=== PATIENT | male | born 1945 | race American Indian/Alaskan Native ===

== ENCOUNTER 2017-02-27 17:03 | Emergency (ER) | payer MEDICARE, OTHER ==
--- NOTE | 2017-02-27 18:06 | Emergency Department Report ---
ED Lower Extremity HPI - General Chief Complaint: Extremity Injury, Lower Stated Complaint: RT KNEE PAIN Time Seen by Provider: 02/27/17 18:03 Source: patient Mode of arrival: Stretcher Limitations: Physical Limitation - History of Present Illness MD Complaint: knee injury -: Sudden Injury: Knee: Right Type of Injury: blunt Place: street/outdoors Severity: mild Severity scale (0 -10): 2 Improves With: nothing Worsens With: nothing Context: fall, direct blow Associated Symptoms: denies: snap/pop sensation, swelling, numbness, tingling - Related Data Home Medications Medication Instructions Recorded Confirmed Last Taken Aspirin [Aspirin BABY CHEW TAB] 81 mg PO QDAY 03/21/15 04/03/15 04/02/15 Atorvastatin [Lipitor] 40 mg PO QHS 03/21/15 04/03/15 04/02/15 Bisacodyl [Dulcolax suppos] 10 mg MN PRN PRN 03/21/15 04/03/15 04/02/15 Calcium Carbonate [Calcium] 250 mg PO DAILY 03/21/15 04/03/15 04/02/15 Citalopram [celeXA] 10 mg PO QDAY 03/21/15 04/03/15 04/02/15 Gabapentin [Neurontin] 100 mg PO Q8H 03/21/15 04/03/15 04/02/15 Galantamine [Razadyne] 16 mg PO BID 03/21/15 04/03/15 04/02/15 Lisinopril [Zestril] 20 mg PO QDAY 03/21/15 04/03/15 04/03/15 05:30 Memantine (Nf) [Namenda] 10 mg PO BID 03/21/15 04/03/15 04/02/15 Metoprolol [Lopressor] 25 mg PO BID 03/21/15 04/03/15 04/03/15 05:30 Multivitamin [Multi Vitamin Daily] 1 each PO DAILY 03/21/15 04/03/15 04/02/15 Nystatin Cream [Mycostatin Cream] 10 applic TP PRN PRN 03/21/15 04/03/15 Omeprazole [PriLOSEC] 20 mg PO QDAY 03/21/15 04/03/15 04/02/15 SUMAtriptan SUCCINATE [Imitrex] 25 mg PO PRN PRN 03/21/15 04/03/15 9 Months Ago Trazodone HCl [traZODone] 50 mg PO PRN PRN 03/21/15 04/03/15 1 Month Ago Allergies Allergy/AdvReac Type Severity Reaction Status Date / Time simvastatin [From Zocor] AdvReac Unknown Verified 03/21/15 15:46 vitamin E (d-alpha AdvReac Unknown Verified 03/21/15 15:46 tocopherol) [vitamin E] ED Review of Systems ROS: Stated complaint: RT KNEE PAIN Other details as noted in HPI Comment: All other systems reviewed and negative ED Past Medical Hx - Past Medical History Previous Medical History?: Yes Hx Hypertension: Yes Hx Heart Attack/AMI: Yes Hx GERD: Yes Hx Liver Disease: Yes (Hep C) Hx Renal Disease: Yes Hx Arthritis: Yes (KNEES) Hx Headaches / Migraines: Yes Hx Seizures: No Hx Dementia: Yes (CONFUSION SHORT TERM MEMORY LOSS) - Surgical History Past Surgical History?: Yes Hx Coronary Stent: Yes (X 3) Hx Open Heart Surgery: Yes (CABG X 3) Hx Pacemaker: No Additional Surgical History: L AKA. PARTIAL R FOOT AMPUTATION. - Social History Smoking Status: Never Smoker Substance Use Type: None - Medications Home Medications: Home Medications Medication Instructions Recorded Confirmed Last Taken Type Aspirin [Aspirin BABY CHEW TAB] 81 mg PO QDAY 03/21/15 04/03/15 04/02/15 History Atorvastatin [Lipitor] 40 mg PO QHS 03/21/15 04/03/15 04/02/15 History Bisacodyl [Dulcolax suppos] 10 mg MN PRN PRN 03/21/15 04/03/15 04/02/15 History Calcium Carbonate [Calcium] 250 mg PO DAILY 03/21/15 04/03/15 04/02/15 History Citalopram [celeXA] 10 mg PO QDAY 03/21/15 04/03/15 04/02/15 History Gabapentin [Neurontin] 100 mg PO Q8H 03/21/15 04/03/15 04/02/15 History Galantamine [Razadyne] 16 mg PO BID 03/21/15 04/03/15 04/02/15 History Lisinopril [Zestril] 20 mg PO QDAY 03/21/15 04/03/15 04/03/15 05:30 History Memantine (Nf) [Namenda] 10 mg PO BID 03/21/15 04/03/15 04/02/15 History Metoprolol [Lopressor] 25 mg PO BID 03/21/15 04/03/15 04/03/15 05:30 History Multivitamin [Multi Vitamin Daily] 1 each PO DAILY 03/21/15 04/03/15 04/02/15 History Nystatin Cream [Mycostatin Cream] 10 applic TP PRN PRN 03/21/15 04/03/15 History Omeprazole [PriLOSEC] 20 mg PO QDAY 03/21/15 04/03/15 04/02/15 History SUMAtriptan SUCCINATE [Imitrex] 25 mg PO PRN PRN 03/21/15 04/03/15 9 Months Ago History Trazodone HCl [traZODone] 50 mg PO PRN PRN 03/21/15 04/03/15 1 Month Ago History ED Physical Exam - General Limitations: Physical Limitation General appearance: alert, in no apparent distress - Head Head exam: Present: atraumatic, normocephalic - Eye Eye exam: Present: normal appearance - ENT ENT exam: Present: mucous membranes moist - Neck Neck exam: Present: normal inspection - Respiratory Respiratory exam: Present: normal lung sounds bilaterally. Absent: respiratory distress - Cardiovascular Cardiovascular Exam: Present: regular rate, normal rhythm. Absent: systolic murmur, diastolic murmur, rubs, gallop - GI/Abdominal GI/Abdominal exam: Present: soft, normal bowel sounds - Rectal Rectal exam: Present: deferred - Extremities Exam Extremities exam: Present: tenderness (right knee ./ decrease rom due to paion , ), other (left BKA). Absent: normal capillary refill, pedal edema, joint swelling, calf tenderness - Back Exam Back exam: Present: normal inspection - Neurological Exam Neurological exam: Present: alert, oriented X3 - Psychiatric Psychiatric exam: Present: normal affect, normal mood - Skin Skin exam: Present: warm, dry, intact, normal color. Absent: rash ED Course Vital Signs 02/27/17 02/27/17 17:30 17:46 Temperature 98.7 F Pulse Rate 82 Respiratory 16 20 Rate Blood Pressure 100/44 O2 Sat by Pulse 100 Oximetry ED Lower Extremity MDM - Radiology Data Radiology results: report reviewed, image reviewed Critical care attestation.: If time is entered above; I have spent that time in minutes in the direct care of this critically ill patient, excluding procedure time. ED Disposition Clinical Impression: Contusion, knee Disposition: DISCHARGED TO HOME OR SELFCARE Is pt being admited?: No Does the pt Need Aspirin: No Condition: Good Instructions: Knee Pain (ED) Referrals: PRIMARY CARE, [Primary Care Provider] - 3-5 Days Time of Disposition: 19:31
[2017-02-27 22:26] VITALS: BP 140/79
--- NOTE | 2017-02-28 09:41 | XRay Report ---
RIGHT KNEE 2 VIEWS: 02/27/17 17:03:00 CLINICAL: Pain after fall from wheelchair. FINDINGS: No fracture or dislocation. Mild arthritic changes with narrowing of the medial joint space. Irregularity of the lateral tibial plateau but no acute fracture. Normal soft tissues. No joint effusion. IMPRESSION: Degenerative changes no evidence of acute injury.
== END 2017-02-27 22:26 | disposition home or self-care (01) ==
LOC: ED 17:03
DX: S80.01XA Contusion of right knee, initial encounter (principal); I10 Essential (primary) hypertension; I25.2 Old myocardial infarction; K21.9 Gastro-esophageal reflux disease without esophagitis; M19.90 Unspecified osteoarthritis, unspecified site; F03.90 Unspecified dementia, unspecified severity, without behavioral disturbance, psychotic disturbance, mood disturbance, and anxiety; Z79.82 Long term (current) use of aspirin; Z88.8 Allergy status to other drugs, medicaments and biological substances; X58.XXXA Exposure to other specified factors, initial encounter; Y93.89 Activity, other specified; Y99.8 Other external cause status; Y92.488 Other paved roadways as the place of occurrence of the external cause